=== PATIENT | male | born 1960 | race Caucasian/White ===

== ENCOUNTER 2022-05-29 14:37 | Emergency (ER) | payer MEDICAID ==
[2022-05-29 16:05] LABS: ESTIMATED GFR 115 mL/min (>60)
[2022-05-29] MEDS ORDERED: Cephalexin 250 MG Cap PO ONE (16:44)
[2022-05-29] MEDS ORDERED: Sulfamethoxazole/Trimethoprim 800-160 MG Tab PO ONE (16:44)
== END 2022-05-29 17:20 | disposition home or self-care (01) ==
LOC: JP.ED 14:37
DX: E11.51 Type 2 diabetes mellitus with diabetic peripheral angiopathy without gangrene (principal); E11.628 Type 2 diabetes mellitus with other skin complications; L08.9 Local infection of the skin and subcutaneous tissue, unspecified; F17.210 Nicotine dependence, cigarettes, uncomplicated
CPT/HCPCS: 36415; 80053; 85025; 85651; 86140; 93926-RT; 93971-RT; 99283; 99284

== ENCOUNTER 2022-12-12 06:13 | Day surgery (SDC) | payer MEDICAID ==
[2022-12-12] MEDS ORDERED: Sodium Chloride 0.9% 1,000 ML IV SCH (07:00)
[2022-12-12] MEDS ORDERED: ceFAZolin 2 GM in Premix Bag 1 BAG IV ONE (07:00)
[2022-12-12] MEDS ORDERED: Dexamethasone 4 MG/ML SDV ONE (07:19)
[2022-12-12] MEDS ORDERED: Rocuronium 50 MG/5 ML Vial ONE (07:19)
[2022-12-12] MEDS ORDERED: Succinylcholine 200 MG/10 ML MDV ONE (07:19)
[2022-12-12] MEDS ORDERED: Glycopyrrolate 0.2 MG/ML 5 ML MDV ONE (07:19)
[2022-12-12] MEDS ORDERED: Neostigmine Methylsulfate 1 MG/ML 5 ML Syringe ONE (07:19)
[2022-12-12] MEDS ORDERED: Propofol 200 MG/20 ML SDV ONE ×2 (07:19→08:54)
[2022-12-12] MEDS ORDERED: Ondansetron 4 MG/2 ML SDV ONE (07:19)
[2022-12-12] MEDS ORDERED: fentaNYL 250 MCG/5 ML SDV ONE (07:20)
[2022-12-12] MEDS ORDERED: Midazolam 1 MG/ML 2 ML SDV ONE (08:27)
[2022-12-12] MEDS ORDERED: fentaNYL 100 MCG/2 ML SDV ONE (08:31)
[2022-12-12] MEDS ORDERED: Acetaminophen/HYDROcodone 325-5 MG Tab PO PRN (09:58)
== END 2022-12-12 10:40 | disposition home or self-care (01) ==
LOC: JP.SDS 06:13
PROVIDERS: ATTEND Surgery
DX: E11.51 Type 2 diabetes mellitus with diabetic peripheral angiopathy without gangrene (principal); E03.9 Hypothyroidism, unspecified; K21.9 Gastro-esophageal reflux disease without esophagitis; E78.1 Pure hyperglyceridemia; E78.00 Pure hypercholesterolemia, unspecified; E66.9 Obesity, unspecified; Z89.512 Acquired absence of left leg below knee; Z79.890 Hormone replacement therapy; Z79.899 Other long term (current) drug therapy; F17.200 Nicotine dependence, unspecified, uncomplicated
CPT/HCPCS: 11042; 11045; 87070; 87075; 87077; 87186; 87205; A9270; J0690; J2250; J2704; J3010; J7030; J0330; J1100; J2405; J2710; J3490